=== PATIENT | male | born 1965 | race Caucasian/White ===

== ENCOUNTER → 2017-06-24 | Outpatient (CLI) | payer BC ==
[~2017-06-24] MED LIST: AMLODIPINE-BEN1 EACH PO; AZITHROMYCIN250 MG PO; BACTRIM 400-801 EACH PO; CLINDAMYCIN HC150 MG PO; DICYCLOMINE HCL20 MG PO; DOXYCYCLINE HY100 MG PO; LYRICA75 MG PO; MEDROL4 MG/DOSE-; METHOTREXATE2.5 MG PO; PANTOPRAZOLE SO40 MG PO; TYLENOL WITH C1 EACH PO
--- NOTE | 2017-06-24 17:03 | Diagnostic Imaging Report ---
PROCEDURE:US LIVER COMPARISON:CT abdomen and pelvis 10/21/2016. INDICATIONS:FATTY LIVER FINDINGS: LIVER: Size:13.8 cm in the right nidclavicular line, normal Appearance:Increased echogenicity, smooth contour Mass:No focal masses GALLBLADDER: Surgically removed. BILE DUCTS: Intrahepatic Ducts:No dilation Extrahepatic Ducts:Common bile duct measures 0.4 cm, no dilatation. PANCREAS: Visualized portions of the neck and proximal body are normal. RIGHT KIDNEY: Size:12. 3 x 5.6 x 5.7 cm in length Echogenicity:Normal Collecting System:No hydronephrosis Stone:None Cyst/Mass:None VESSELS: Aorta:Visualized portions are normal. Inferior Vena Cava:Visualized portions are normal. Main Portal Vein:0.9 cm, normal size with hepatopedal flow. FREE FLUID: No ascites or pleural effusions. CONCLUSION: Diffuse hepatic steatosis. Dictated by: J Carlos Rushing M.D. on 06/24/2017 at 17:03 Electronically approved by: J Carlos Rushing M.D. on 06/24/2017 at 17:03
== END ==
LOC: US 16:05
PROVIDERS: ATTEND Internal Medicine Gastroenterology
DX: K76.0 Fatty (change of) liver, not elsewhere classified (principal)
CPT/HCPCS: 76705

== ENCOUNTER → 2018-09-27 | Outpatient (CLI) | payer BC ==
--- NOTE | 2018-09-27 15:12 | Diagnostic Imaging Report ---
Exam: Abdominal film Clinical History: Abdominal pain and distention Comparison: Abdominal radiograph 04/26/2009 DISCUSSION: The bowel gas pattern shows no dilated, air-filled loops of bowel. Gas and fecal material is noted throughout the large bowel. Right upper quadrant surgical clips likely reflect prior cholecystectomy. Pelvic phleboliths are unchanged compared to 04/26/2009. No mass effect or organomegaly. Regional skeletal structures are intact. IMPRESSION: Nonobstructive bowel gas pattern. Signed by: Dr. Popeye Arvizu M.D. on 09/27/2018 3:08 PM
== END ==
LOC: RAD 14:16
PROVIDERS: ATTEND Family Medicine
DX: R10.9 Unspecified abdominal pain (principal); R14.0 Abdominal distension (gaseous)
CPT/HCPCS: 74018

== ENCOUNTER → 2018-10-30 | Day surgery (SDC) | payer BC ==
[~2018-10-30] MED LIST changes: +FENTANYL CITRATE/PF 100MCG/2 ML INJ ONE; +GLUCAGON FOR INJ 1 MG VIAL ONE; +HYOSCYAMINE 0.125 MG TAB ONE; +KETAMINE HCL INJ 50 MG/ML 10 ML VIAL ONE; +MIDAZOLAM HCL 2 MG/2 ML VIAL ONE; +ONDANSETRON HCL INJ 2MG/ML 2ML 2 MG/ML VIAL ONE; +PROPOFOL IV EMULSION 10 MG/ML 50 ML VIAL ONE
--- OUTSIDE RECORDS SUMMARY | 2018-10-30 10:49 | XMS REPORT ---
Author Author [facility] Address Unknown Phone Unavailable Care Team Providers Care Cdc Associate Name Role Phone MISBAH NEWBY Unavailable Unavailable AARON ADKINS Unavailable Unavailable Payers Payer Name Policy Type Policy Number Effective Date Expiration Date Problems This patient has no known problems. Allergies, Adverse Reactions, Alerts Allergy Name Allergy Type Status Severity Reaction(s) Onset Date Inactive Date Treating Clinician Comments Sulfa (Sulfonamide Antibiotics) DA Active U 2018-02-18 00:00:00 meperidine DA Active U 2018-02-18 00:00:00 Sulfa (Sulfonamide Antibiotics) DA Active U 2018-02-17 00:00:00 meperidine DA Active U 2018-02-17 00:00:00 Medications This patient has no known medications. Results Test Description Test Time Test Comments Text Results Atomic Results Result Comments ABDOMEN-1VIEW (KUB) 2018-09-27 15:05:00 [place] [address] Patient Name: RIAN MARRERO MR #: [id number] : 1965 Age/Sex: 53/M Req #: [id number] Adm Physician: Ordered by: ODIN ROWLAND, MISBAH Rodriguez MD Report #: [id number] Location: [facility] Room/Bed: Procedure: [id number] DX/ABDOMEN-1VIEW (KUB) Exam Date: 09/27/18 Exam Time: 1435 REPORT STATUS: Signed Exam: Abdominal film Clinical History: Abdo mandeep pain and distention Comparison: Abdominal radiograph 04/26/2009 DISCUSSION: The bowel gas pattern shows no dilated, air-filled loops of bowel. Gas and fecal material is noted throughout the large bowel. Right upper quadrant surgical clips likely reflect prior cholecystectomy. Pelvic phleboliths are unchanged compared to 04/26/2009. No mass effect or organomegaly. Regional skeletal structures are intact. IMPRESSION: Nonobstructive bowel gas pattern. Signed by: Dr. Gilmer Nick M.D. on 09/27/2018 3:08 PM Dictated By: GILMER NICK MD 1502 Transcribed By: MARIZOL on 09/27/18 1502 COPY TO: MISBAH NEWBY LIVER [place] [address] Patient Name: RIAN MARRERO MR #: [id number] : 1965 Age/Sex: 52/M Req #: [id number] Adm Physician: Ordered by: AARON ADKINS MD Report #: [id number] Location: Room/Bed: Procedure: [id number] US/US LIVER Exam Date: Exam Time: REPORT STATUS: Signed PROCEDURE: US LIVER COMPARISON: CT abdomen and pelvis 10/21/2016. INDICATIONS: FATTY LIVER FINDINGS: LIVER: Size: 13.8 cm in the right nidclavicular line, normal Appearance: Increased echogenicity, smooth contour Mass: No focal masses GALLBLADDER: Surgically removed. BILE DUCTS: Intrahepatic Ducts: No dilation Extrahepatic Ducts: Common bile duct measures 0.4 cm, no dilatation. PANCREAS: Visualized portions of the neck and proximal body are normal. RIGHT KIDNEY: Size: 12. 3 x 5.6 x 5.7 cm in length Echogenicity: Normal Collecting System: No hydronephrosis Stone: None Cyst/Mass: None VESSELS: Aorta: Visualized portions are normal. Inferior Vena Cava: Visualized portions are normal. Main Portal Vein: 0.9 cm, normal size with hepatopedal flow. FREE FLUID: No ascites or pleural effusions. CONCLUSION: Diffuse hepatic steatosis. Dictated by: Jean Carlos Negron M.D. on 06/24/2017 at 17:03 Electronically approved by: Jean Carlos Negron M.D. on 06/24/2017 at 17:03 Dictated By: JEAN CARLOS NEGRON MD 1702 Transcribed By: NUSRAT on 06/24/17 1703 COPY TO: AARON ADKINS MD
--- NOTE | 2018-10-30 12:34 | Operative Report ---
DATE OF PROCEDURE: 10/30/2018 SURGEON: Gregg Briseno MD PROCEDURE: An EGD with biopsies and colonoscopy with polypectomy and biopsies. INDICATION FOR EGD: Dyspepsia. INDICATIONS FOR COLONOSCOPY: Surveillance colonoscopy, personal history of colon polyps, diarrhea. MEDICATIONS: The patient was done under MAC, please see anesthesiologist's note. PROCEDURE IN DETAIL: With the patient in left lateral decubitus position, a flexible fiberoptic Olympus gastroscope was introduced into the esophagus under direct visualization without any difficulty. There was some patchy erythema noted in distal esophagus. The scope was then advanced with ease into the stomach. Mucosa overlying the antrum and the body revealed some patchy erythema and low-grade to moderate edema and biopsies were obtained and sent to stain for H pylori. Minute nodule was noted in the antrum that was biopsied. There was also hyperplastic appearing polyp noted in the upper body and that was partially excised with the cold biopsy forceps. The pylorus was of normal contour and shape and was intubated with ease and the scope was advanced all the way to the second portion of the duodenum. Biopsies were obtained from the second portion and duodenal bulb to rule out sprue. The scope was then withdrawn back into the stomach and retroflexed and mucosa overlying the fundus and cardia appeared to be within normal limits. The scope was then straightened out, it was subsequently withdrawn. The patient tolerated the procedure well. IMPRESSION: 1. Mild distal esophagitis. 2. Gastritis, biopsied. Biopsies sent to stain for H pylori. 3. Gastric polyp, hyperplastic appearing, proximal body, partially excised with the cold biopsy forceps. 4. Antral nodule, biopsied. 5. Rule out sprue. PLAN: Follow up histology. Increase Protonix to 40 mg one p.o. a.c. b.i.d. COLONOSCOPY: The patient was then turned around. After adequate lubrication of the anal canal, a flexible fiberoptic Olympus colonoscope was inserted into the rectum with ease and advanced all the way to the cecum. A minute polyp was removed per the cold biopsy forceps from the cecum. The ileocecal valve was intubated and the scope was advanced into the terminal ileum. Biopsies were obtained. The scope was then withdrawn back into the colon. It was then withdrawn slowly in the ascending colon, appeared to be within normal limits. One polyp was snared and one polyp was hot biopsied from the transverse colon. Mild inflammatory patchy findings were noted in the left colon and random biopsies were obtained. Three polyps were hot biopsied from the rectum. The scope was then retroflexed into the distal rectum and small internal hemorrhoids were noted, none of which was actively bleeding. The scope was then straightened out, it was subsequently withdrawn after securing an adequate stool specimen that was sent for the appropriate stool studies. The patient tolerated procedure well. IMPRESSION: 1. Cecal polyp removed per cold biopsy forceps. 2. Transverse colon polyps x2, one snared and one hot biopsied. 3. Mild patchy left-sided colitis. 4. Rectal polyps x3, hot biopsied. 5. Internal hemorrhoids, none actively bleeding. PLAN: Follow up histology. Initiate Bentyl 10 mg one p.o. t.i.d. Add Florastor one p.o. b.i.d. The patient might benefit from a followup colonoscopy in 3 years. A total of six polyps were removed. MD CHULA Oakley/ANAHI /[id number] cc: Bharathi Sims
[2018-10-30 12:36] LABS: WBC,FECAL (FECAL LACTOFERRIN) NEGATIVE (NEGATIVE)
[2018-10-30 14:39] LABS: C DIFFICILE TOXIN A&B AMP PROB NEGATIVE (NEGATIVE)
== END | disposition home or self-care (01) ==
LOC: OR 08:00
PROVIDERS: ATTEND Internal Medicine Gastroenterology
DX: K29.50 Unspecified chronic gastritis without bleeding (principal); D12.3 Benign neoplasm of transverse colon; K62.1 Rectal polyp; K31.7 Polyp of stomach and duodenum; K20.8 Other esophagitis; K29.60 Other gastritis without bleeding; K51.50 Left sided colitis without complications; K59.00 Constipation, unspecified; K21.9 Gastro-esophageal reflux disease without esophagitis; K31.89 Other diseases of stomach and duodenum; K64.8 Other hemorrhoids; I10 Essential (primary) hypertension; M41.9 Scoliosis, unspecified; Z88.6 Allergy status to analgesic agent; Z88.2 Allergy status to sulfonamides; Z88.8 Allergy status to other drugs, medicaments and biological substances; Z01.810 Encounter for preprocedural cardiovascular examination; Z68.30 Body mass index [BMI] 30.0-30.9, adult
CPT/HCPCS: 43239; 45380; 45384; 45385; 83630; 83993; 87045; 87177; 87328; 87493; 93005; J1610; J2250; J2405; J2704; J3010; 45378

== ENCOUNTER 2020-09-25 14:59 | Emergency (ER) | payer BC ==
[~2020-09-25] VITALS: Ht 172.7 cm; Wt 94.3 kg
[~2020-09-25 14:59] MED LIST changes: -FENTANYL CITRATE/PF 100MCG/2 ML INJ ONE; -GLUCAGON FOR INJ 1 MG VIAL ONE; -HYOSCYAMINE 0.125 MG TAB ONE; -KETAMINE HCL INJ 50 MG/ML 10 ML VIAL ONE; -MIDAZOLAM HCL 2 MG/2 ML VIAL ONE; -ONDANSETRON HCL INJ 2MG/ML 2ML 2 MG/ML VIAL ONE; -PROPOFOL IV EMULSION 10 MG/ML 50 ML VIAL ONE
[2020-09-25] MEDS: ONDANSETRON HCL INJ 2MG/ML 2ML 2 MG/ML VIAL IV STA (15:18)
[2020-09-25] MEDS: SODIUM CHLORIDE 0.9% 1000ML 1,000 ML IV ONE (15:30)
[2020-09-25] MEDS: FENTANYL CITRATE/PF 100MCG/2 ML INJ IV ONE (15:30)
[2020-09-25 15:32] LABS: BASOPHILS % 0.3 % (0.0-1.0); EOSINOPHILS # (AUTO) 0.1 (0.0-0.4); EOSINOPHILS % 1.2 % (0.0-6.0); HEMATOCRIT 44.1 % (38.2-49.6); HEMOGLOBIN 14.8 g/dL (14.0-18.0); LYMPHOCYTES # (AUTO) 3.3 (1.0-3.2); LYMPHOCYTES % 36.6 % (18.0-39.1); MEAN CORPUSCULAR HGB CONC 33.6 g/dL (31-35); MEAN CORPUSCULAR VOLUME 89.3 fL (81-99); MONOCYTES # (AUTO) 0.8 (0.2-0.8); MONOCYTES % 8.7 % (4.4-11.3); NEUTROPHILS # (AUTO) 4.7 (2.1-6.9); NEUTROPHILS % 52.9 % (38.7-80.0); PLATELET COUNT 242 x10e3/uL (140-360); RED BLOOD COUNT 4.94 x10e6/uL (4.3-5.7); RED CELL DISTRIBUTION WIDTH 12.7 % (11.7-14.4)
[2020-09-25] MEDS ORDERED: ONDANSETRON HCL INJ 2MG/ML 2ML 2 MG/ML VIAL ONE (15:35)
[2020-09-25] MEDS ORDERED: FENTANYL CITRATE/PF 100MCG/2 ML INJ ONE (15:35)
[2020-09-25 15:48] LABS: ALBUMIN 4.2 g/dL (3.5-5.0); ALBUMIN/GLOBULIN RATIO 1.4 (0.8-2.0); CALCIUM 8.8 mg/dL (8.4-10.2); CREATININE, SERUM 0.89 mg/dL (0.72-1.25)
[2020-09-25] MEDS ORDERED: IOPAMIDOL 370 MG/ML 200 ML INFUS..BTL INJ ONE (16:17)
[2020-09-25] MEDS ORDERED: SODIUM CHLORIDE 0.9% 50ML 50 ML ONE (16:17)
[2020-09-25 18:23] LABS: CLARITY,URINE CLEAR (CLEAR); COLOR,URINE YELLOW (YELLOW); KETONES,URINE NEGATIVE (NEGATIVE); LEUKOCYTE ESTERASE ,URINE NEGATIVE (NEGATIVE); NITRITE,URINE NEGATIVE (NEGATIVE); PROTEIN,URINE DIPSTICK NEGATIVE (NEGATIVE); URINE UROBILINOGEN 0.2 mg/dL (0.2 - 1)
[2020-09-25 18:33] LABS: RBC,URINE 0-5 /HPF (0-5); WBC,URINE (MAN) 0-5 /HPF (0-5)
[2020-09-25 18:34] LABS: EPITHELIAL CELLS,URINE RARE /LPF
== END 2020-09-25 19:25 | disposition home or self-care (01) ==
LOC: ER 15:28
DX: R10.31 Right lower quadrant pain (principal); R11.0 Nausea; K63.9 Disease of intestine, unspecified; K76.0 Fatty (change of) liver, not elsewhere classified; G62.9 Polyneuropathy, unspecified
CPT/HCPCS: 36415; 74177; 80053; 81001; 85025; 99284; J2405; J3010; J7030; Q9967

== ENCOUNTER 2021-03-23 13:34 | Emergency (ER) | payer BC ==
[~2021-03-23] VITALS: Ht 172.7 cm; Wt 94.3 kg
[2021-03-23] MEDS ORDERED: METHYLPREDNISOLONE ACETATE 80 MG/ML VIAL IM ONE (13:45)
[2021-03-23] MEDS ORDERED: PREDNISONE20 MG PO (13:49)
== END 2021-03-23 15:00 | disposition home or self-care (01) ==
LOC: ER 13:40
DX: R21 Rash and other nonspecific skin eruption (principal); I10 Essential (primary) hypertension; G62.9 Polyneuropathy, unspecified; K21.9 Gastro-esophageal reflux disease without esophagitis; L40.50 Arthropathic psoriasis, unspecified; Z87.442 Personal history of urinary calculi
CPT/HCPCS: 99282; J1040